=== PATIENT | female | born 1930 | race Caucasian/White ===

== ENCOUNTER 2016-10-01 11:03 | Observation (INO) | payer MEDICARE, BC ==
[2016-10-01] MEDS ORDERED: ZOLPIDEM TARTRATE 5 MG TABLET PO PRN (11:12)
[2016-10-01] MEDS ORDERED: HOME MEDICATION LIST NEEDED 1 EA EACH MC ONE (11:12)
[2016-10-01] MEDS ORDERED: ACETAMINOPHEN 325 MG TABLET PO PRN (11:12)
[2016-10-01] MEDS: IPRATROPIUM/ALBUTEROL 0.5/3 MG 3 ML AMPUL.NEB IH SCH ×3 (13:00→20:14)
[2016-10-01] MEDS ORDERED: CEFTRIAXONE SODIUM 1,000 MG/10 ML VIAL ONE (13:04)
[2016-10-01] MEDS: POTASSIUM CHLORIDE/NS 1,000 ML IV SCH ×2 (13:04→23:33)
[2016-10-01] MEDS ORDERED: NORMAL SALINE MINI-BAG+ 100 ML IV ONE (13:05)
[2016-10-01] MEDS ORDERED: IPRATROPIUM/ALBUTEROL 0.5/3 MG 3 ML AMPUL.NEB INHALATION ONE (13:06)
[2016-10-01] MEDS: CEFTRIAXONE SODIUM 1,000 MG in NORMAL SALINE MINI-BAG+ 100 ML IV SCH (13:07)
[2016-10-01] MEDS: GUAIFENESIN ER 600 MG TABLET PO SCH ×2 (13:07→20:14)
[2016-10-01 16:33] LABS: BASOPHIL# 0.1 X 10^3uL (0.0-0.1); EOSINOPHILS 0.5 % (0.0-6.0); HEMOGLOBIN 12.4 g/dL (12.0-16.0); LYMPHOCYTES 15.8 % (20.0-40.0); LYMPHOCYTES# 1.5 X 10^3uL (0.8-3.8); MEAN CELL VOLUME 87.8 fL (80.0-100.0); MEAN CORPUS. HGB CONCENTRATION 32.7 g/dL (32.0-36.0); MEAN CORPUSCULAR HEMOGLOBIN 28.7 pg (29.0-35.0); MEAN PLATELET VOLUME 8.8 fL (7.4-10.4); MONOCYTES 12.8 % (2.0-10.0); MONOCYTES# 1.2 X 10^3uL (0.2-1.0); NEUTROPHILS 69.9 % (54.0-75.0); NEUTROPHILS# 6.5 X 10^3uL (2.6-6.7); PLATELET COUNT 161 X 10^3uL (130-440); RED BLOOD COUNT 4.33 X 10^6uL (4.20-6.10); WHITE BLOOD COUNT 9.3 X 10^3uL (3.9-10.7)
[2016-10-01 16:44] LABS: BLOOD UREA NITROGEN 19 mg/dL (7-17); CHLORIDE 103 mmol/L (98-107); CREATININE 0.9 mg/dL (0.5-1.0); GLUCOSE 104 mg/dL (70-100); POTASSIUM 4.1 mmol/L (3.5-5.1); SODIUM 138 mmol/L (137-145)
--- NOTE | 2016-10-01 17:57 | HISTORY & PHYSICAL ---
DATE OF ADMISSION: 10/01/16 ATTENDING PHYSICIAN: Ryanne Wallace MD ADMITTING DIAGNOSIS: Right hilar pneumonia. HISTORY OF PRESENT ILLNESS: Patient is an 85-year-old female, who had influenza in August of this year for which she was seen in the Emergency Room. Subsequent to that she had a residual cough that just would not go away and was seen on 09/25/16 in the office with cough and diarrhea history, but she was bringing up clear mucous and it was felt likely to be viral. The diarrhea had resolved at the time of the office visit. She has a few myalgias and a slight headache and a sore throat. Given the clear sputum and normal vital signs and oxygen levels, patient was placed on Ipratropium Albuterol inhaler, and provided with self-care instructions for bronchitis. However, she felt worse over the weekend and yesterday called to be seen but could not get an appointment of her satisfaction. She returns to the office today complaining of malaise, fatigue, a severe cough productive of yellowish sputum for which she has been taking Cheratussin and using her Combivent. She is very short of breath with exertion. Patient has an underlying history of nocturnal hypoxia for which she uses oxygen. On evaluation in the Emergency Room, patient had severe and diffuse rhonchi noted, chest x-ray with a right hilar infiltrate and tachycardia with hypoxia with exertion. She is therefore admitted with a diagnosis of pneumonia for IV antibiotics and further evaluation. ALLERGIES: None known. MEDICATIONS AT HOME Acetaminophen 325 mg 2 tabs as needed. Aspirin Ecotrin 81 mg daily. Ipratroprium albuterol HFA 2 puffs 4 times daily. Oxygen 3 liters nocturnal. Ocuvite adult 50+ daily. Omeprazole 40 mg daily. PreserVision AREDS 2 1 daily. Vitamin D 1000 units 2 capsules daily. PAST MEDICAL HISTORY 1. Chronically abnormal chest x-ray with scarring which is felt to be due to some exposures in her youth. 2. Gastroesophageal reflux disease. 3. Midline low back pain with right sided sciatica. 4. History of tubulovillous adenoma of the colon, last colonoscopy 05/2013. 5. Diverticulosis. 6. History of gastric ulcer for which she is suppose to take proton pump inhibitors chronically. 7. Hemorrhoids. 8. 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 9. Mild hyperglycemia, diet controlled. 10. Hyperlipidemia controlled with diet and exercise. 11. Nocturnal hypoxia. 12. 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 13. History of overactive bladder. 14. Right eyelid ptosis since her Horners syndrome. 15. 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 16. Trochanteric bursitis of both hips. 17. History of benign positional vertigo. 18. Vitamin D deficiency. PAST SURGICAL HISTORY 1. Anterior cruciate ligament repair in 1990 on the right side. 2. Appendectomy as a 9-year-old child. 3. Bladder lift surgery in the 1949s. 4. Cataract extraction with intraocular lens implantation in 2014 in both eyes. 5. Right inguinal hernia repair 06/2006. 6. Removal of neurofibroma 2011. 7. Total abdominal hysterectomy in 1969 for menorrhagia at age 41. 8. Umbilical hernia repair in 1961. SOCIAL HISTORY: She is . She occasionally drinks alcohol. She has 1 living son and 4 grandchildren, 1 of her sons was killed in a motor vehicle accident pedestrian accident in 2009. She is a nonsmoker. She sometimes works as a patient advocate. FAMILY HISTORY: Father at 62 with an unknown type of cancer. Mother with colon cancer at 83. Her 1 son was killed as noted above at age 52. The other son had non-Hodgkins lymphoma at age 35 and is doing well now. REVIEW OF SYSTEMS: Denies any headache. Denies sore throat. She has general malaise. She is short of breath with exertion. She is coughing constantly which is productive. She has no chest pain or palpations. No abdominal pain, diarrhea , melena, hematochezia. No dysuria or hematuria. She feels generally weak without specific localizing weakness. PHYSICAL EXAMINATION VITAL SIGNS: Temperature 98.2, blood pressure 124/64, pulse 104, respiratory rate 20. O2 saturation 90% on room at rest. Weight is 145 pounds. GENERAL: Alert but appears fatigued and generally unwell. HEENT: Sclera are anicteric. Extraocular movements are intact. There is slight left eyelid ptosis. Pupils are equal, round and reactive to light. Oropharynx shows moist mucosa. NECK: No jugular venous distention. No bruits. No adenopathy. No thyromegaly. LUNGS: Diffuse rhonchi throughout. She is mildly tachypneic at times. No dullness to percussion was noted. She does have a mild pectus excavatum. CARDIOVASCULAR: Regular rate and rhythm without murmurs, rubs or gallops noted. ABDOMEN: Soft, nontender. Bowel sounds are normoactive. No organomegaly. There is an incisional hernia which is very small in the right lower quadrant at the site of a surgical scar. EXTREMITIES: No cyanosis, clubbing or edema. NEUROLOGIC: Well oriented. Cranial nerves grossly intact. Motor 5/5. Deep tendon reflexes 2+ and symmetrical. Gait is normal. DATA: CBC is still pending as is chemistry and sputum cultures and blood cultures. IMAGING: Chest x-ray shows some old scarring and a right hilar infiltrate which is new. ASSESSMENT AND PLAN 1. Right hilar pneumonia which has occurred some weeks after influenza infection. Sputum cultures and blood cultures are being ordered. Patient is admitted for IV antibiotics. I have started with a community-acquired pneumonia antibiotic with Rocephin and Azithromycin, but will keep in mind the potential for staph pneumonia in this age group, superimposed on an influenza infection. Patient is dehydrated, and will start her on some gentle IV fluids. We will continue Nebulizers. I am not ordering steroids at this point, as patient is not actively wheezing. Will ask respiratory therapy for a consult and help with treatment. 2. Hypoxemia which is chronic, nocturnal, now present during the day. Will start continuous oxygen at this time. 3. Deep vein thrombosis prophylaxis will be obtained with Lovenox bearing in mind a history of gastric ulcer. Patient will also be maintained on Pantoprazole. 4. Code status: DNR and this has been discussed with the patient on several occasions and we will honor that. INES
[2016-10-02] MEDS: IPRATROPIUM/ALBUTEROL 0.5/3 MG 3 ML AMPUL.NEB IH SCH ×4 (07:13→20:21)
[2016-10-02] MEDS ORDERED: BISACODYL 5 MG TABLET PO PRN (07:40)
--- NOTE | 2016-10-02 07:48 | PROGRESS NOTE: IM APSO ---
Assessment and Plan - Date of Encounter Date of Encounter: 10/02/16 (1) Pneumonia Status: Acute Assessment and plan: Not much improvement overnight. Unfortunately sputum culture was not obtained and has been re-ordered. I will add Pulmicort per RT recommendation; there is use of a flutter valve to loosen secretions. WBC has been normal. Continue efforts. Awaiting Pertussis testing result, also. Current Visit: Yes - Time Spent With Patient Total time spent with greater than 50% in coordination of care (as documented) at patient's floor/unit and/or counseling patient: IM: PN Subjective Interval history: Not much improvement overnight. Patient requests a cough medication. We don't seem to have Cheratussin or similar. Tussionex ordered. No sputum was obtained in spite of order. Respiratory therapist suggests addition of Pulmicort. General: fatigue HEENT: no headache Cardiovascular: no chest pain, no chest pressure Respiratory: cough, sputum, SOB Gastrointestinal: constipation, no abdominal pain Genitourinary: no incontinence IM: PN Objective Exam - I&O/Vital Signs I&O: Intake & Output 10/01/16 10/02/16 10/02/16 21:59 05:59 13:59 Intake Total 930 1725 Output Total 600 925 Balance 330 800 Intake: IV 450 1200 LEFT HAND 450 1200 Oral 480 525 Output: Urine 600 925 Other: Urine Appearance Clear Clear Urine Color Yellow Yellow Voiding Method Toilet Toilet Vital Signs: Last Vital Signs Temp 36.7 C 10/02/16 07:00 Pulse 79 10/02/16 07:16 Resp 18 10/02/16 07:00 BP 110/56 10/02/16 07:00 Pulse Ox 96 10/02/16 07:16 Oxygen Flow Rate 2 Oxygen Delivery Method Nasal Cannula - Constitutional General appearance: Present: average body habitus, cooperative - Head Head exam: Present: normal inspection - Eye Eye exam: Present: EOMI. Absent: conjunctival injection Pupils: Present: PERRL - ENT ENT exam: Present: mucous membranes moist - Neck Neck exam: Present: full ROM - Respiratory Respiratory exam: Present: rhonchi (coarse, very pronounced, upper chest mainly) . Absent: accessory muscle use - Cardiovascular Cardiovascular exam: Present: RRR (difficult to auscultate because of rhonchi) - Extremities Exam Extremities exam: Present: normal inspection. Absent: calf tenderness, edema - Neurological Exam Neurological exam: Present: CN II-XII intact - Allied Health Notes Allied health notes reviewed: nursing, RT - Lab Labs: Laboratory Last Values WBC 9.3 X 10^3uL (3.9-10.7) 10/01/16 11:12 RBC 4.33 X 10^6uL (4.20-6.10) 10/01/16 11:12 Hgb 12.4 g/dL (12.0-16.0) 10/01/16 11:12 Hct 38.0 % (36.0-48.0) 10/01/16 11:12 MCV 87.8 fL (80.0-100.0) 10/01/16 11:12 MCH 28.7 pg (29.0-35.0) L 10/01/16 11:12 MCHC 32.7 g/dL (32.0-36.0) 10/01/16 11:12 RDW 14.0 % (11.5-14.5) 10/01/16 11:12 Plt Count 161 X 10^3uL (130-440) 10/01/16 11:12 MPV 8.8 fL (7.4-10.4) 10/01/16 11:12 Neutrophils % 69.9 % (54.0-75.0) 10/01/16 11:12 Lymphocytes % 15.8 % (20.0-40.0) L 10/01/16 11:12 Eosinophils % 0.5 % (0.0-6.0) 10/01/16 11:12 Basophils % 1.0 % (0.0-2.0) 10/01/16 11:12 Neutrophils # 6.5 X 10^3uL (2.6-6.7) 10/01/16 11:12 Lymphocytes # 1.5 X 10^3uL (0.8-3.8) 10/01/16 11:12 Monocytes 12.8 % (2.0-10.0) H 10/01/16 11:12 Monocytes # 1.2 X 10^3uL (0.2-1.0) H 10/01/16 11:12 Eosinophils # 0.0 X 10^3uL (0.0-0.4) 10/01/16 11:12 Basophils # 0.1 X 10^3uL (0.0-0.1) 10/01/16 11:12 Sodium 138 mmol/L (137-145) 10/01/16 11:12 Potassium 4.1 mmol/L (3.5-5.1) 10/01/16 11:12 Chloride 103 mmol/L (98-107) 10/01/16 11:12 Carbon Dioxide 24 mmol/L (22-30) 10/01/16 11:12 BUN 19 mg/dL (7-17) H 10/01/16 11:12 Creatinine 0.9 mg/dL (0.5-1.0) 10/01/16 11:12 GFR Calculation Not Reportable 10/01/16 11:12 Glucose 104 mg/dL (70-100) H 10/01/16 11:12 Calcium 9.0 mg/dL (8.4-10.2) 10/01/16 11:12 Quality Questions - VTE Prophylaxis Assessment VTE Present on Admission?: No Patient at risk for venous thromboembolism?: Yes VTE Risk Level: Moderate Risk VTE Medical Contraindication: N/A-VTE Prophylaxis ordered (1) Pneumonia Qualifiers: Pneumonia type: due to unspecified organism Laterality: right Lung location : middle lobe of lung Qualified Code(s): J18.1 - Lobar pneumonia, unspecified organism
[2016-10-02] MEDS: DOCUSATE SODIUM 100 MG CAPSULE PO SCH ×2 (08:24→20:06)
[2016-10-02] MEDS: TUSSIONEX PENNKINETIC SUSP 5 ML UDC PO SCH ×2 (08:24→20:20)
[2016-10-02] MEDS: GUAIFENESIN ER 600 MG TABLET PO SCH ×2 (08:24→20:21)
[2016-10-02] MEDS: AZITHROMYCIN 250 MG TABLET PO SCH (08:25)
[2016-10-02] MEDS: ENOXAPARIN SODIUM 40 MG/0.4 ML SYR SUBCUT SCH (08:25)
[2016-10-02] MEDS: BUDESONIDE 0.5 MG/2 ML NEB INHALATION SCH ×2 (08:56→20:55)
[2016-10-02] MEDS ORDERED: PROBIOTIC 1 CAP CAPSULE PO SCH (09:00)
[2016-10-02] MEDS: POTASSIUM CHLORIDE/NS 1,000 ML IV SCH ×2 (11:46→21:52)
[2016-10-02] MEDS ORDERED: POTASSIUM CHLORIDE/NS 1,000 ML IV ONE (11:48)
[2016-10-02] MEDS: CEFTRIAXONE SODIUM 1,000 MG in NORMAL SALINE MINI-BAG+ 100 ML IV SCH (12:24)
[2016-10-02] MEDS ORDERED: NORMAL SALINE 250 ML IV ONE (12:32)
[2016-10-02] MEDS: NYSTATIN SUSP 500,000 UNITS/5 ML SUSP PO SCH (20:21)
[2016-10-03] MEDS: NYSTATIN SUSP 500,000 UNITS/5 ML SUSP PO SCH ×2 (03:51→08:21)
[2016-10-03 06:38] LABS: BLOOD UREA NITROGEN 14 mg/dL (7-17); CALCIUM 8.3 mg/dL (8.4-10.2); CHLORIDE 109 mmol/L (98-107); CREATININE 0.9 mg/dL (0.5-1.0); GLUCOSE 95 mg/dL (70-100); POTASSIUM 4.5 mmol/L (3.5-5.1); SODIUM 138 mmol/L (137-145)
[2016-10-03 06:43] LABS: BASOPHILS 0.4 % (0.0-2.0); EOSINOPHILS 2.5 % (0.0-6.0); EOSINOPHILS# 0.2 X 10^3uL (0.0-0.4); HEMATOCRIT 34.4 % (36.0-48.0); HEMOGLOBIN 11.3 g/dL (12.0-16.0); LYMPHOCYTES 24.1 % (20.0-40.0); LYMPHOCYTES# 1.6 X 10^3uL (0.8-3.8); MEAN CORPUS. HGB CONCENTRATION 32.8 g/dL (32.0-36.0); MEAN CORPUSCULAR HEMOGLOBIN 28.9 pg (29.0-35.0); MEAN PLATELET VOLUME 9.3 fL (7.4-10.4); MONOCYTES 14.2 % (2.0-10.0); MONOCYTES# 0.9 X 10^3uL (0.2-1.0); NEUTROPHILS 58.8 % (54.0-75.0); NEUTROPHILS# 3.9 X 10^3uL (2.6-6.7); PLATELET COUNT 140 X 10^3uL (130-440); RED BLOOD COUNT 3.91 X 10^6uL (4.20-6.10); RED CELL DISTRIBUTION WIDTH 14.4 % (11.5-14.5); WHITE BLOOD COUNT 6.6 X 10^3uL (3.9-10.7)
[2016-10-03 07:04] VITALS: BP 120/49; PULSE 76; RESP 16; TEMP 97.6; O2SAT 92
[2016-10-03] MEDS: IPRATROPIUM/ALBUTEROL 0.5/3 MG 3 ML AMPUL.NEB IH SCH (07:40)
[2016-10-03] MEDS: GUAIFENESIN ER 600 MG TABLET PO SCH (08:21)
--- NOTE | 2016-10-03 08:24 | DC SUMMARY: IM Note ---
Discharge Summary: IM/Peds Provider: Date of Admission: 10/01/16 Admitting Provider: TRICIA AKERS MD Attending Provider: TRICIA AKERS MD Discharging Provider: TRICIA AKERS MD Primary Care Provider: Discharge Date: 10/03/16 - Diagnosis (1) Pneumonia Status: Acute Qualifiers: Pneumonia type: due to unspecified organism Laterality: right Lung location: middle lobe of lung Qualified Code(s): J18.1 - Lobar pneumonia , unspecified organism Hospital Course: Patient was admitted with severe cough, right infrahilar infiltrate and dyspnea on exertion, and treated with IV antibiotics, Rocephin and Azithromycin. Sputum gram stain showed mixed respiratory ruperto, culture is still pending. Patient greatly improved with the administration of nebulizers, antibiotics and the use of a flutter valve. She had a severe cough, and responded to Tussionex , although it made her drowsy. She was discharged home on Levofloxacin, Pulmicort and Combivent. - Time Spent with Patient Total time spent providing and/or coordinating discharge services: Time with patient DS: Greater than 30 minutes Discharge - Patient/Caregiver Discharge Instructions Activity Level: As tolerated Diet: Regular Follow up: TRICIA AKERS MD [Primary Care Provider] - 7 Days Overall discharge status: patient is progressing back to baseline Home Medications: Probiotic [Ruperto-Q Capsule*] 1 cap PO DAILY #30 capsule Levofloxacin 500 mg PO DAILY #7 tab Guaifenesin ER [Mucinex*] 1,200 mg PO Q12H #20 tablet Budesonide [Pulmicort Flexhaler] 90 mcg PO BID #1 [email or web address] Tussionex Pennkinetic Susp [Tussionex Pennkinetic Susp*] 2.5 ml PO Q12H PRN #4 oz PRN Reason: Cough, Moderate Disposition: HOME, SELF-CARE 1. Medical reason for no anticoagulation order on D/C?: Treatment not indicated 2. Medical reason for no anticoag overlap on D/C?: Treatment not indicated Discharge Summary Data - Medication History Medication History: Home Medications Cholecalciferol (Vitamin D3) [Vitamin D3] 2,000 unit PO DAILY 10/01/16 Docusate Sodium [Colace*] 100 mg PO DAILY 10/01/16 Polyethylene Glycol 3350 [Miralax*] 1 packet PO DAILY 10/01/16 Psyllium Husk/Aspartame [Metamucil Fiber Singles Packet] 3.4 gm PO DAILY Vit A/Vit C/Vit E/Zinc/Copper [Preservision Areds Tablet] 1 tab PO DAILY aspirin EC [Aspirin EC*] 81 mg PO DAILY 10/01/16 Inpatient Medications 10/01/16 09:00 Guaifenesin ER [Mucinex] 1,200 mg PO Q12H 10/01/16 11:12 Acetaminophen [Tylenol] 650 mg PO Q6H PRN Zolpidem Tartrate [Ambien] 5 mg PO HS PRN 10/01/16 12:00 Ceftriaxone Sodium [Rocephin] 1,000 mg Normal Saline Mini-Bag+ [Sodium Chloride 100 ml Mini-Bag Plus] 100 ml IV Q24H Potassium Chloride/Ns [KCl 20 Meq in Ns 1L] 1,000 ml IV CONT 10/01/16 13:00 Ipratropium/Albuterol 0.5/3 mg [Duoneb 2.5-0.5 mg/3 ml Soln] 3 ml IH QIDINH 10/02/16 07:40 Bisacodyl [Dulcolax] 10 mg PO DAILY PRN 10/02/16 07:45 Docusate Sodium [Colace] 100 mg PO Q12H 10/02/16 08:00 Tussionex Pennkinetic Susp 5 ml PO Q12H 10/02/16 09:00 Azithromycin [Zithromax] 250 mg PO DAILY Budesonide [Pulmicort Neb] 0.5 mg INHALATION BID Enoxaparin Sodium [Lovenox] 40 mg SUBCUT DAILY Probiotic [Ruperto-Q Capsule] 1 cap PO DAILY 10/02/16 20:00 Nystatin Susp [Mycostatin Susp] 50,000 units PO 5 TIMES DAILY Procedures and tests throughout hospitalization: Completed Lab Orders 10/01/16 11:12 BASIC METABOLIC PANEL [CHEM] Urgent CBC AUTO DIF, MDIF/RMOR IF IND [HEM] Urgent 10/03/16 06:05 BASIC METABOLIC PANEL [CHEM] AMDRAW CBC AUTO DIF, MDIF/RMOR IF IND [HEM] AMDRAW Pending Orders 10/01/16 09:00 Guaifenesin ER [Mucinex] 1,200 mg PO Q12H 10/01/16 11:12 Admit: Observation Routine Activity: Bathroom Privileges . Assess pulse oximetry CONTINUOUS Intake and Output QSHIFT I&O Resuscitation Status Routine Titrate Oxygen TITRATE B/W 90-95% Vital Signs QSHIFT VS BLOOD CULTURE [BC] Urgent Acetaminophen [Tylenol] 650 mg PO Q6H PRN Zolpidem Tartrate [Ambien] 5 mg PO HS PRN 10/01/16 11:14 SPUTUM CULTURE AND GRAM STAIN [RM] Urgent Respiratory Therapy Consult [RT] Routine 10/01/16 12:00 Ceftriaxone Sodium [Rocephin] 1,000 mg Normal Saline Mini-Bag+ [Sodium Chloride 100 ml Mini-Bag Plus] 100 ml IV Q24H Potassium Chloride/Ns [KCl 20 Meq in Ns 1L] 1,000 ml IV CONT 10/01/16 13:00 Ipratropium/Albuterol 0.5/3 mg [Duoneb 2.5-0.5 mg/3 ml Soln] 3 ml IH QIDINH 10/01/16 Lunch Regular [DIET] 10/02/16 07:40 Bisacodyl [Dulcolax] 10 mg PO DAILY PRN 10/02/16 07:45 Docusate Sodium [Colace] 100 mg PO Q12H 10/02/16 08:00 Tussionex Pennkinetic Susp 5 ml PO Q12H 10/02/16 09:00 Azithromycin [Zithromax] 250 mg PO DAILY Budesonide [Pulmicort Neb] 0.5 mg INHALATION BID Enoxaparin Sodium [Lovenox] 40 mg SUBCUT DAILY Probiotic [Ruperto-Q Capsule] 1 cap PO DAILY 10/02/16 15:17 SPUTUM CULTURE AND GRAM STAIN [RM] Routine 10/02/16 20:00 Nystatin Susp [Mycostatin Susp] 50,000 units PO 5 TIMES DAILY 10/03/16 08:05 Miscellaneous Care Order . Labs on day of discharge: Labs from last 24 hours 10/03/16 06:05 WBC 6.6 RBC 3.91 L Hgb 11.3 L Hct 34.4 L MCV 88.0 MCH 28.9 L MCHC 32.8 RDW 14.4 Plt Count 140 MPV 9.3 Neutrophils % 58.8 Lymphocytes % 24.1 Eosinophils % 2.5 Basophils % 0.4 Neutrophils # 3.9 Lymphocytes # 1.6 Monocytes 14.2 H Monocytes # 0.9 Eosinophils # 0.2 Basophils # 0.0 Sodium 138 Potassium 4.5 Chloride 109 H Carbon Dioxide 22 BUN 14 Creatinine 0.9 GFR Calculation Not Reportable Glucose 95 Calcium 8.3 L Preliminary micro results at discharge 10/01/16 11:12 Blood Culture - Preliminary Blood NO GROWTH TO DATE 10/01/16 11:12 Blood Culture - Preliminary Blood NO GROWTH TO DATE IM: Discharge Physical Exam - I&O/Vital Signs I&O: Intake & Output 10/02/16 10/03/16 10/03/16 21:59 05:59 13:59 Intake Total 2581 1500 Output Total 200 600 Balance 2381 900 Intake: IV 2191 1200 Right Wrist 2191 1200 Oral 390 300 Output: Urine 200 600 Other: Urine Appearance Clear Urine Color Yellow Stool Size Moderate Stool Characteristics Formed Brown Voiding Method Toilet Toilet # Voids 4 # Bowel Movements 1 Vital Signs: Last Vital Signs Temp 36.4 C 10/03/16 06:15 Pulse 76 10/03/16 06:15 Resp 16 10/03/16 06:15 BP 120/49 10/03/16 06:15 Pulse Ox 92 10/03/16 06:15 Oxygen Flow Rate 2 Oxygen Delivery Method Room Air - Constitutional General appearance: Present: average body habitus, cooperative - Head Head exam: Present: normal inspection - Eye Eye exam: Present: EOMI. Absent: conjunctival injection Pupils: Present: PERRL - ENT ENT exam: Present: mucous membranes moist - Neck Neck exam: Present: full ROM - Respiratory Respiratory exam: Present: CTAB (surprisingly clear this morning.). Absent: accessory muscle use - Cardiovascular Cardiovascular exam: Present: RRR (difficult to auscultate because of rhonchi) - Extremities Exam Extremities exam: Present: normal inspection. Absent: calf tenderness, edema - Neurological Exam Neurological exam: Present: CN II-XII intact - Allied Health Notes Allied health notes reviewed: nursing, RT
[2016-10-03] MEDS: AZITHROMYCIN 250 MG TABLET PO SCH (08:26)
[2016-10-03] MEDS: ENOXAPARIN SODIUM 40 MG/0.4 ML SYR SUBCUT SCH (08:27)
[2016-10-03] MEDS: BUDESONIDE 0.5 MG/2 ML NEB INHALATION SCH (09:20)
[2016-10-03] MEDS ORDERED: INHALER, ASSIST DEVICES 1 PKT EACH ONE (09:36)
== END 2016-10-03 09:32 | disposition home or self-care (01) ==
LOC: IN 11:03
PROVIDERS: ADMIT Internal Medicine; ATTEND Internal Medicine
DX: J18.8 Other pneumonia, unspecified organism (principal); K21.9 Gastro-esophageal reflux disease without esophagitis; K57.90 Diverticulosis of intestine, part unspecified, without perforation or abscess without bleeding; G90.2 Horner's syndrome; M54.5 Low back pain; E78.5 Hyperlipidemia, unspecified; G47.34 Idiopathic sleep related nonobstructive alveolar hypoventilation; N32.81 Overactive bladder; E55.9 Vitamin D deficiency, unspecified; R73.9 Hyperglycemia, unspecified; Z79.899 Other long term (current) drug therapy
CPT/HCPCS: 36415; 80048; 85025; 87040; 87070; 87205; 94640; 94664; 94667; 94668; 96361; 96365; 96366; 96372; 99219; G0378; G0379; J0696; J1650; J3480; J7050; J7620; Q0144

== ENCOUNTER 2017-01-30 09:36 | Emergency (ER) | payer MEDICARE, BC ==
[2017-01-30 10:01] LABS: BASOPHILS 0.6 % (0.0-2.0); EOSINOPHILS 1.5 % (0.0-6.0); EOSINOPHILS# 0.1 X 10^3uL (0.0-0.4); HEMATOCRIT 43.3 % (36.0-48.0); HEMOGLOBIN 14.6 g/dL (12.0-16.0); LYMPHOCYTES 42.2 % (20.0-40.0); LYMPHOCYTES# 2.2 X 10^3uL (0.8-3.8); MEAN CELL VOLUME 89.2 fL (80.0-100.0); MEAN CORPUS. HGB CONCENTRATION 33.7 g/dL (32.0-36.0); MEAN PLATELET VOLUME 9.2 fL (7.4-10.4); MONOCYTES 12.6 % (2.0-10.0); MONOCYTES# 0.7 X 10^3uL (0.2-1.0); NEUTROPHILS 43.1 % (54.0-75.0); NEUTROPHILS# 2.3 X 10^3uL (2.6-6.7); PLATELET COUNT 161 X 10^3uL (130-440); RED BLOOD COUNT 4.86 X 10^6uL (4.20-6.10); RED CELL DISTRIBUTION WIDTH 13.8 % (11.5-14.5); WHITE BLOOD COUNT 5.4 X 10^3uL (3.9-10.7)
[2017-01-30] MEDS ORDERED: KETOROLAC TROMETHAMINE 30 MG/ML VIAL ONE (10:07)
[2017-01-30 10:11] LABS: BLOOD UREA NITROGEN 20 mg/dL (7-17); CALCIUM 10.9 mg/dL (8.4-10.2); CHLORIDE 103 mmol/L (98-107); GLUCOSE 178 mg/dL (70-100); MAGNESIUM 1.9 mg/dL (1.6-2.3); POTASSIUM 4.1 mmol/L (3.5-5.1); SODIUM 139 mmol/L (137-145)
--- NOTE | 2017-01-30 10:12 | RADIOLOGY REPORT ---
Chest HISTORY: Chest pain Discussion: Frontal radiograph of the chest is reviewed and compared prior study from 10/01/2016. The lungs appear clear of focal areas of consolidation. Is no nodules or masses identified. There is a hypodense probably calcified right hilar lymph node identified. This in the prior study appears unc hanged. Cardiac silhouette and pulmonary vessel. Within normal limits. Osseous structures appear unre markable IMPRESSION: No active disease Final Electronic Signature: This report was electronically signed by Yair Santamaria MD on 01/30/2017 10:10 AM. [email or web address] /
[2017-01-30 10:26] LABS: TROPONIN I < 0.012 ng/mL (0.00-0.034)
--- NOTE | 2017-01-30 11:13 | CT REPORT ---
HISTORY: Shortness of breath with elevated d-dimer. COMPARISON: None. TECHNIQUE: This examination was performed using automated exposure control, adjustment of mA or kV according to patient size, and/or use of iterative reconstruction technique. Axial CT imaging from the thoracic i nlet through the upper abdomen following administration of IV contrast during peak opacification of t he pulmonary arteries, multiplanar reformatted and 3-D images are evaluated. 100cc Isovue 300 contrast. FINDINGS: There is no acute pulmonary embolism. Central pulmonary arteries are not enlarged. The thoracic aorta measures up to 3.1 cm in its ascending segment. The descending thoracic aorta is normal in caliber. There is no pericardial effusion. The heart is mildly enlarged. There is mild atelectasis in the lung bases. Mild centrilobular emphysema is present. There is overal l hazy density within the superior segment of the right lower lobe. No consolidation, pleural effusio n, or pulmonary edema is demonstrated. There is a calcified granuloma in the right upper lobe. The chest wall appears intact. Imaged portions of the upper abdomen show calcified granulomas in the spleen but are otherwise unremarkable. IMPRESSION: 1. Negative for acute pulmonary is an. 2. Mild bibasal atelectasis. Small hazy density in the superior segment of the right lower lobe may r epresent a focal area of mild pneumonitis. No consolidation or pleural effusion. 3. 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 4. Mild centrilobular emphysema. 5. Mild dilatation of the ascending aorta to 3.1 cm. Final Electronic Signature: This report was electronically signed by Lucho Reeves MD on 01/30/2017 11:11 AM. [email or web address] /
--- NOTE | 2017-01-30 11:47 | ER NURSING DOCUMENTATION ---
Nurse's Notes [facility] Name:Carloz Magaña Age:86 yrs Sex:Female :1930 Arrival Date:01/30/2017 Time:09:36 BedTrauma-A Private MD:Ryanne Wallace Diagnosis:Atypical Chest Pain Presentation: 01/30 09:40 Presenting complaint: Patient states: right upper quadrant abdominal pain/lower chest sc1 pain came on suddenly BOTTLE TESTER. Transition of care: Home. 09:40 Acuity: GINNY 3 sc1 09:40 Method Of Arrival: Private Vehicle sc1 09:58 Acuity: GINNY 2 lpr Triage Assessment: 09:35 General: Appears in no apparent distress, distressed, well developed, well nourished, sc1 well groomed, Behavior is cooperative, pleasant. Pain: Complains of pain in right upper quadrant. Historical: - Allergies: No known drug Allergies; - Home Meds: 1. Aspirin Oral - PMHx: NONE; Influenza (August 03, 2016); - PSHx: APPENDECTOMY; HYSTERECTOMY; acl; HERNIA REPAIR; - Ebola Screening: : Patient negative for fever greater than or equal to 101.5 degrees Fahrenheit, and additional compatible Ebola Virus Disease symptoms. Patient denies exposure to infectious person. Patient denies travel to an Ebola-affected area in the 21 days before illness onset. No symptoms or risks identified at this time. . - Immunization history: Pneumococcal vaccine is up to date, Flu Vaccine < 1 year. - Social history: Smoking status: Patient states was never smoker of tobacco. Patient uses alcohol but reports only rare drinking. Patient/guardian denies using street drugs, IV drugs, marijuana. Screenin:58 Infectious Disease Risk None. Abuse screen: Denies threats or abuse. Nutritional sc1 screening: No deficits noted. Vital Signs: 09:57 BP 162 / 77; Pulse 88; Resp 20; Temp 98.6; Pulse Ox 97% on R/A; sc1 10:31 Pulse Ox 93% ; sc1 10:38 BP 159 / 73 (auto/); sc1 ED Course: 09:37 Patient arrived in ED. ama 09:37 Ryanne Wallace MD is Private Physician. ama 09:40 Jennifer Anthony RN is Primary Nurse. sc1 09:42 Triage completed. sc1 09:42 Chew, Klever, MD is Attending Physician. co 09:58 Notified ED Physician of patient's arrival and chief complaint. Dr. Simmons notified. Arm co1 band placed on Bed in low position Call Light in Reach Gowned HOB Elevated Side rails up x2. EKG done per protocol. Labs ordered per protocol. Drawn by ED staff. X-ray done. 09:59 Inserted peripheral IV: 20 gauge in left antecubital area and blood collected. [facility] 10:00 EKG done per protocol. Performed by ED Staff. Shown to ED physician. co1 10:06 Port Xray Completed. [email or web address] 10:09 Valuables Remains with patient. Pulse ox on. NIBP on. [facility] 10:17 EKG attached [facility] 10:22 Ryanne Wallace MD is Referral Physician. co 10:22 Maximino Newman MD is Referral Physician. co 11:43 Discontinued lock intact, bleeding controlled, pressure dressing applied, No co1 redness/swelling at site. Administered Medications: 09:50 Drug: Toradol 15 mg; Route: IVP; Site: left antecubital; [facility] 10:25 Follow up: Response: No adverse reaction; Pain is decreased [facility] Outcome: 10:22 Discharge ordered by MD. co 11:46 Discharged to home ambulatory. [facility] 11:46 Condition: stable 11:46 Discharge instructions given to patient, Instructed on discharge instructions, follow up and referral plans. Demonstrated understanding of instructions. 11:46 Patient left the ED. [facility] 01/31 08:59 Discharge F/U Call: Unable to reach: no answer st Signatures: Allyssa Hoff RN RN st Campbell, Sandy, RN RN [facility] Klever Simmons MD MD sc Roberts, Leslie, RN RN lpr Abbott, Laura lea Averdick, Andrew, Reg Reg ama
--- NOTE | 2017-01-30 11:47 | ER PHYSICIAN DOCUMENTATION ---
Physician Documentation [facility] Name:Carloz Magaña Age:86 yrs Sex:Female :1930 Arrival Date:01/30/2017 Time:09:36 BedTrauma-A Private MD:Ryanne Wallace ED, [place] Disposition: 01/30 10:21 Critical Care: not applicable. va Disposition: 01/30/17 10:22 Discharged to Home/Self Care. Impression: Atypical Chest Pain. - Condition is Good. - Discharge Instructions: CHEST PAIN Atypical - CHEST PAIN, Uncertain Cause. - Medical Reconciliation form form. - Follow up: Ryanne Wallace MD; When: As needed; Reason: Continuance of care. Follow up: Maximino Newman MD; When: 1 week; Reason: Continuance of care. - Problem is new. - Symptoms are resolved. HPI: 10:19 This 86 yrs old Female presents to ER via Private Vehicle with complaints of sc Chest Pain. 10:19 The patient or guardian reports chest pain that is located primarily in the anterior sc chest wall. Onset: 15 minute(s) ago. The pain does not radiate. Associated signs and symptoms: The patient has no apparent associated signs or symptoms. The chest pain is described as sharp. Duration: The patient or guardian reports a single episode, that is still ongoing. Modifying factors: the symptoms are aggravated by palpation of area, twisting torso. Severity of pain: At its worst the pain was severe. This patient does not have any risk factors related to chest pain. The patient has experienced a previous episode, approximately 3 weeks ago. Historical: - Allergies: No known drug Allergies; - Home Meds: 1. Aspirin Oral - PMHx: NONE; Influenza (August 03, 2016); - PSHx: APPENDECTOMY; HYSTERECTOMY; acl; HERNIA REPAIR; - Ebola Screening: : Patient negative for fever greater than or equal to 101.5 degrees Fahrenheit, and additional compatible Ebola Virus Disease symptoms. Patient denies exposure to infectious person. Patient denies travel to an Ebola-affected area in the 21 days before illness onset. No symptoms or risks identified at this time. . - Immunization history: Pneumococcal vaccine is up to date, Flu Vaccine < 1 year. - Social history: Smoking status: Patient states was never smoker of tobacco. Patient uses alcohol but reports only rare drinking. Patient/guardian denies using street drugs, IV drugs, marijuana. ROS: 10:20 Constitutional: Negative for fever, chills, and weight loss. sc Eyes: Negative for injury, pain, redness, and discharge. ENT: Negative for injury, pain, and discharge. Neck: Negative for injury, pain, and swelling. Respiratory: Negative for shortness of breath, cough, wheezing, and pleuritic chest pain. Abdomen/GI: Negative for abdominal pain, nausea, vomiting, diarrhea, and constipation. Back: Negative for injury and pain. MS/Extremity: Negative for injury and deformity. Skin: Negative for injury, rash, and discoloration. 10:20 Neuro: Negative for headache, weakness, numbness, tingling, and seizure. sc 10:20 Cardiovascular: Positive for chest pain. Exam: Constitutional: This is a well developed, well nourished patient who is awake, alert, and in no acute distress. Head/Face: Normocephalic, atraumatic. Eyes: Pupils equal round and reactive to light, extra-ocular motions intact. Lids and lashes normal. Conjunctiva and sclera are non-icteric and not injected. Cornea within normal limits. Periorbital areas with no swelling, redness, or edema. ENT: Nares patent. No nasal discharge, no septal abnormalities noted. Tympanic membranes are normal and external auditory canals are clear. Oropharynx with no redness, swelling, or masses, exudates, or evidence of obstruction, uvula midline. Mucous membranes moist. Neck: Trachea midline, no thyromegaly or masses palpated, and no cervical lymphadenopathy. Supple, full range of motion without nuchal rigidity, or vertebral point tenderness. No meningismus. Chest/axilla: Normal chest wall appearance and motion. Nontender with no deformity. No lesions are appreciated. Cardiovascular: Regular rate and rhythm with a normal S1 and S2. No gallops, murmurs, or rubs. Normal PMI, no JVD. No pulse deficits. Respiratory: Lungs have equal breath sounds bilaterally, clear to auscultation and percussion. No rales, rhonchi or wheezes noted. No increased work of breathing, no retractions or nasal flaring. Abdomen/GI: Soft, non-tender, with normal bowel sounds. No distension or tympany. No guarding or rebound. No evidence of tenderness throughout. Back: No spinal tenderness. No costovertebral tenderness. Full range of motion. 10:20 Skin: Warm, dry with normal turgor. Normal color with no rashes, no lesions, and no sc evidence of cellulitis. 10:20 Chest/axilla: Palpation: tenderness, that is moderate, of the right breast, that partially reproduces the patient's complaints. 10:20 Cardiovascular: Rate: normal, Rhythm: regular. 10:20 Respiratory: the patient does not display signs of respiratory distress, Respirations: normal, Breath sounds: are normal, clear throughout. Vital Signs: 09:57 BP 162 / 77; Pulse 88; Resp 20; Temp 98.6; Pulse Ox 97% on R/A; sc1 10:31 Pulse Ox 93% ; sc1 10:38 BP 159 / 73 (auto/); sc1 MDM: 09:42 Patient medically screened. va 10:17 EKG attached va1 10:21 Patient took aspirin within the past 24 hours. Patient did not receive fibrinolytic due sc to na. Data reviewed: vital signs, nurses notes, old medical records, lab test result(s), EKG, radiologic studies, and as a result, I will continue to observe the patient. Data interpreted: media monitor: rate is 70 beats/min, rhythm is normal sinus rhythm. ECG:. 11:31 ED course: Possible pneumonitis in RLL. Suggested follow up.. va 01/30 10:03 Order name: CBC AUTO DIF, MDIF/RMOR IF IND; Complete Time: 10:51 EDMS 01/30 10:18 Interpretation: Normal. va 01/30 10:27 Order name: BASIC METABOLIC PANEL; Complete Time: 10:51 EDMS 01/30 10:27 Order name: MAGNESIUM; Complete Time: 10:51 EDMS 01/30 10:27 Order name: TROPONIN I; Complete Time: 10:51 EDMS 01/30 10:34 Order name: DDIMER; Complete Time: 10:51 EDMS 01/30 10:15 Order name: CHEST; SING[place]IEW [id number]; Complete Time: 10:18 EDMS 01/30 10:18 Interpretation: Normal. va 01/30 11:17 Order name: CAT SCAN; CHEST ANGIO [id number]; Complete Time: 11:30 EDMS 01/30 11:30 Interpretation: Normal Except. va 01/30 09:51 Order name: 12-lead EKG; Complete Time: 10:06 va 01/30 09:51 Order name: Iv Saline Lock; Complete Time: 09:59 va EC:21 Rate is 70 beats/min. Rhythm is regular. QRS [place] is Normal. GA interval is normal. QRS sc interval is normal. QT interval is normal. No Q waves. T waves are Normal. No ST changes noted. Clinical impression: Normal ECG. Interpreted by me. Reviewed by me. Dispensed Medications: :50 Drug: Toradol 15 mg; Route: IVP; Site: left antecubital; va1 10:25 Follow up: Response: No adverse reaction; Pain is decreased va1 Signatures: Jennifer Anthony RN RN va1 Klever Simmons MD MD va
== END 2017-01-30 11:47 | disposition home or self-care (01) ==
LOC: ER 09:36
DX: R07.89 Other chest pain (principal); R91.8 Other nonspecific abnormal finding of lung field; Z79.82 Long term (current) use of aspirin
CPT/HCPCS: 71010; 71275; 80048; 83735; 84484; 85025; 85379; 93005; 93010; 96374; 99284; 99285; J1885